=== PATIENT | male | born 1975 | race Caucasian/White ===

== ENCOUNTER 2020-12-29 22:05 | Emergency (ER) | payer OTHER, SELFPAY ==
--- NOTE | ~2020-12-29 | XR_ITS ---
EXAMINATION: XR WRIST, LEFT CLINICAL INFORMATION: Left wrist pain COMPARISON: None TECHNIQUE: PA, lateral, and oblique views of the left wrist. FINDINGS: The bones and soft tissues are normal. No fracture. Alignment is anatomic with normal joint spaces. No erosions or abnormal soft tissue calcifications. XR/XR wrist LT min 3V IMPRESSION: Unremarkable left wrist exam.
[2020-12-29 22:26] VITALS: BP 151/98; PULSE 78; RESP 18; TEMP 36.9; O2SAT 96; BMI 42.5
[2020-12-29] MEDS: Acetaminophen 325 MG TABLET 650 MG PO (22:32)
--- NOTE | 2020-12-30 00:14 | ED_ITS ---
HPI - Extremity Problem General Chief complaint: Extremity Injury, Upper Stated complaint: left wrist twisted, possible sprain Time Seen by Provider: 12/30/20 00:14 Source: patient Mode of arrival: ambulatory History of Present Illness HPI Narrative: 45-year-old male who presents with left wrist pain after he was using a Jake in the yd and the handle slipped causing a twisting motion of his left wrist with development of pain and tingling into the fingers afterwards. 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 Related Data Allergies Allergy/AdvReac Type Severity Reaction Status Date / Time Seroquel Allergy Intermediate hives Uncoded 12/29/20 22:25 Review of Systems Review of Systems: Pertinent positives and negatives as stated in HPI 10 point review of systems is otherwise negative. PMFSH Past Medical History Source: nursing notes reviewed Surgical History S/P appendectomy Social History Social History Advance Directives: No Advance Directives Information Provided: No Physical Exam Vital Signs: Vital Signs: Last Vital Signs Temp 98.4 F 12/29/20 22:26 Pulse 78 12/29/20 22:26 Resp 18 12/29/20 22:26 BP 151/98 H 12/29/20 22:26 Pulse Ox 96 12/29/20 22:26 Body Mass Index 42.5 VITAL SIGNS: Reviewed. GENERAL: Well developed, well nourished, in no acute distress. HEAD: Normocephalic/atraumatic EYES: PERRLA, EOMI EARS: Ext canals without abnormality OROPHARYNX: no oral lesions noted, posterior pharynx clear LUNGS: Normal breath sounds. No adventitious sounds or accessory muscle use. SpO2<96> CARDIOVASCULAR: Regular rate and rhythm without noted murmurs ABDOMEN: Soft, non-tender, non-distended with bowel sounds. 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 SKIN: Inspection of the skin reveals no rashes NEUROLOGIC: Alert and oriented x 4. Strength and sensation to light touch were grossly intact x 4. Course Course Course Narrative: 45-year-old male with history and clinical presentation consistent with sprain left wrist and review of all imaging negative for evidence of acute fracture dislocation. Patient was informed of all results and discharged home in stable condition and will be presumptively given guidance for left wrist sprain. Discharge Plan Discharge Clinical Impression: Sprain and strain of wrist Patient Disposition: Home, Self-Care Instructions: Wrist Sprain (ED) Additional Instructions: 1. Tylenol 1000 mg, orally, every 6 hours as needed for pain control. Do not exceed 4000 mg within 24 hours. 2. Ibuprofen 400 mg, orally with milk or food, every 6 hours as needed for pain control. You may take this in combination with the Tylenol for additional pain relief. 3. Recommend doing gentle range of motion with your left wrist to avoid stiffness, avoid heavy lifting (greater than 25 lb) for the next week. 4. Please follow-up with your primary care provider in the next 2-3 days for re- evaluation and further outpatient management. Return to the ER for any acute worsening of symptoms. Referrals: Physician,None [Primary Care Provider] - 2 days
== END 2020-12-30 00:26 | disposition home or self-care (01) ==
PROVIDERS: Emergency Provider Student in an Organized Health Care Education/Training Program
DX: S63.502A Unspecified sprain of left wrist, initial encounter (principal); M25.532 Pain in left wrist; X58.XXXA Exposure to other specified factors, initial encounter; Y93.9 Activity, unspecified; Y92.9 Unspecified place or not applicable; Y99.9 Unspecified external cause status
CPT/HCPCS: 73110; 99283; 99284